=== PATIENT | male | born 1935 | race Caucasian/White ===

== ENCOUNTER → 2016-11-21 | Outpatient (CLI) | payer OTHER, MEDICARE | LOC: BHFA 10:30 | PROVIDERS: ATTEND Internal Medicine Interventional Cardiology | DX: I48.92 Unspecified atrial flutter (principal); E78.5 Hyperlipidemia, unspecified ==

== ENCOUNTER 2016-11-22 09:23 | Day surgery (SDC) | payer OTHER, MEDICARE ==
[2016-11-22] MEDS ORDERED: MIDAZOLAM 2 MG/2 ML VIAL IVP ONE (09:25)
[2016-11-22] MEDS ORDERED: NS 500 ML IV ONE (09:25)
[2016-11-22] MEDS ORDERED: PROPOFOL 200 MG/20 ML VIAL IVP ONE (09:25)
[2016-11-22] MEDS ORDERED: fentaNYL 100 MCG/2 ML INJ IVP ONE (09:25)
--- NOTE | 2016-11-22 09:56 | CPEKG ---
Heart Rate: 80 RR Interval: 750 P-R Interval: 217 QRSD Interval: 98 QT Interval: 392 QTC Interval: 453 P [place]: 0 QRS [place]: -27 T Wave [place]: 78 EKG Severity - BORDERLINE ECG - EKG Impression: INCOMPLETE ANALYSIS DUE TO MISSING DATA IN PRECORDIAL LEAD(S) EKG Impression: SINUS RHYTHM EKG Impression: ATRIAL PREMATURE COMPLEX EKG Impression: BORDERLINE LEFT AXIS DEVIATION EKG Impression: BORDERLINE T ABNORMALITIES, ANT-LAT LEADS Electronically Signed By: Catracho Sanchez 23-Nov-2016 14:17:35
[2016-11-22 10:50] LABS: ANION GAP 10 mEq/L (8-16); CALCIUM 8.8 mg/dL (8.5-10.4); CARBON DIOXIDE 25 mEq/l (22-31); CHLORIDE 104 mEq/L (97-110); CREATININE 0.8 mg/dL (0.7-1.3); GLOMERULAR FILTRATION RATE > 60; GLUCOSE 100 mg/dL (70-100); MAGNESIUM 1.7 mg/dL (1.6-2.3); POTASSIUM 4.7 mEq/L (3.5-5.2); SODIUM 139 mEq/L (134-144)
[2016-11-22 11:01] LABS: TROPONIN I 0.015 ng/mL (0-0.034)
--- NOTE | 2016-11-22 12:10 | ECHO ---
[id number] + + [address] : : [place] [address] : : [phone] + + Adult Echocardiographic Report + --------+ :Name: NASREEN PATEL HStudy Date: 11/22/2016 10:18 AM : : Hospital Admission Number: [id number] Locat ion: CVC: :: 1935 Gender: Male Height: 72 in : :Age: 81 yrs Race: WH Weight: 190 l b : :Reason For Study: eval heart : : BSA: 2.1 mete rs2 : :History: S/P mitral valve repair : + --------+ MMode/2D Measurements & Calculations IVSd: 0.95 cm RVDd: 3.8 cm FS: 26.4 % Ao root diam: LVPWd: 0.97 cm LVIDd: 3.8 cm EDV(Teich): 60.8 ml3.5 cm LVIDs: 2.8 cm ESV(Teich): 28.9 mlLA dimension: EF(Teich): 52.4 % 4.2 cm LVOT diam: 2.1 cmLVLd ap4: 7.8 cm SV(MOD-sp4): LVOT area: EDV(MOD-sp4): 56.0 ml 3.5 cm2 103.0 ml LVLs ap4: 7.4 cm ESV(MOD-sp4): 47.0 ml EF(MOD-sp4): 54.4 % Normal Measurement Values: + + :LVIDd (3.5-5.7cm) IVSd (0.6-1.1cm) LVPWd (0.6-1.1cm) Aortic Root (2.0-3.7cm)Left Atrium (1.5-4.0cm): :LV Vol(d) (76-115ml) LV Vol(s) (29-48ml) Ejec Fraction (50-65%)PV Marko (0.6- 1.2m/s) TV Marko (0.4-1.0m/s) : :MV E Marko (0.8-1.0m/s)MV A Marko (0.3-1.0m/s)LVOT Marko (0.7-1.2m/s) Asc Ao Marko ( 0.9-1.8m/s) : + + Doppler Measurements & Calculations MV V2 mean: MV P1/2t max marko: Ao mean PG: AI max marko: 97.6 cm/sec 152.2 cm/sec 4.5 mmHg 451.0 cm/sec MV mean PG: MV P1/2t: 98.9 msec Ao V2 mean: AI max P.6 mmHg MVA(P1/2t): 2.2 cm2 102.6 cm/sec 81.3 mmHg MV V2 VTI: MV dec slope: Ao V2 VTI: AI dec slope: 35.7 cm 26.3 cm 206.1 cm/sec2 MVA(VTI): 451.0 cm/sec2 DARRIUS(I,D): 1.6 cm2 AI P1/2t: 1.2 cm2 640.8 msec LV V1 max: SV(LVOT): 43.1 ml PA V2 max: TR max marko: 74.7 cm/sec 165.6 cm/sec 271.5 cm/sec LV V1 max PG: PA max PG: TR max P.2 mmHg 11.0 mmHg 29.5 mmHg LV V1 mean PG: RAP systole: 1.1 mmHg 10.0 mmHg LV V1 mean: RVSP(TR): 39.5 mmHg 46.5 cm/sec LV V1 VTI: 12.3 cm Left Ventricle The left ventricle is normal in size. There is normal left ventricular wall thickness. Ejection Fraction = 50-55%. Left ventricular systolic function is low normal. No regional wall motion abnormalities noted. Right Ventricle The right ventricle is normal in size and function. Atria The left atrium is moderately dilated. The Left Atrial Volume is 46 ml/m2. The right atrium is mildly dilated. A dilated inferior vena cava suggests increased right atrial pressure. Mitral Valve Mean gradient across the repair Mitral valve is 3.6mmHg. There is mild to moderate mitral regurgitation. Posterior leaflet appears fixed with is consistent with S/P mitral valve repair. Leaflets are thickened with bright focal thickening on the tips of both leaflets. Tricuspid Valve The tricuspid valve is normal in structure and function. There is no tricuspid stenosis. There is moderate to severe tricuspid regurgitation. Right ventricular systolic pressure is 40mmHg. There is Doppler evidence for mild pulmonary hypertension. Aortic Valve The aortic valve is trileaflet. Mildly calcifiend tips of the aortic valve leaflets. There is no aortic stenosis. Mild aortic regurgitation. Pulmonic Valve The pulmonic valve is not well visualized. Great Vessels The aortic root is normal size. Pericardium/Pleural There is no pericardial effusion. Conclusion A two-dimensional transthoracic echocardiogram with M-mode and Doppler was performed. Ejection Fraction = 50-55%. Left ventricular systolic function is low normal. The left atrium is moderately dilated. The Left Atrial Volume is 46 ml/m2. The right atrium is mildly dilated. A dilated inferior vena cava suggests increased right atrial pressure. Posterior leaflet appears fixed with is consistent with S/P mitral valve repair. Leaflets are thickened with bright focal thickening on the tips of both leaflets. There is mild to moderate mitral regurgitation. Mean gradient across the repair Mitral valve is 3.6mmHg. Right ventricular systolic pressure is 40mmHg. There is Doppler evidence for mild pulmonary hypertension. There is moderate to severe tricuspid regurgitation. Mildly calcifiend tips of the aortic valve leaflets. Mild aortic regurgitation. Final Reading Physician: Ping Ma signed on 11/22/2016 12:09 PM Ordering Physician: REAL HECTOR Performed By: Shyanne Quiñones
== END 2016-11-22 12:00 | disposition home or self-care (01) ==
LOC: FCATH 09:23
PROVIDERS: ATTEND Internal Medicine Interventional Cardiology
DX: I48.92 Unspecified atrial flutter (principal); I10 Essential (primary) hypertension; E78.5 Hyperlipidemia, unspecified; Z53.09 Procedure and treatment not carried out because of other contraindication

== ENCOUNTER → 2017-04-17 | Outpatient (CLI) | payer OTHER, MEDICARE | LOC: BHFA 14:15 | PROVIDERS: ATTEND Internal Medicine Interventional Cardiology | DX: I47.1 Supraventricular tachycardia (principal); I48.91 Unspecified atrial fibrillation; Z98.890 Other specified postprocedural states ==

== ENCOUNTER → 2018-02-06 | Outpatient (CLI) | payer OTHER, MEDICARE | LOC: FIMAGING 12:20 | PROVIDERS: ATTEND Internal Medicine | DX: J98.4 Other disorders of lung (principal); M51.34 Other intervertebral disc degeneration, thoracic region; Z98.890 Other specified postprocedural states ==

== ENCOUNTER → 2018-03-05 | Outpatient (CLI) | payer OTHER, MEDICARE | LOC: BHFA 13:00 | PROVIDERS: ATTEND Internal Medicine Cardiovascular Disease | DX: R07.9 Chest pain, unspecified (principal) | CPT/HCPCS: 78452; 93017; A9500; J2785 ==

== ENCOUNTER → 2018-03-07 | Outpatient (CLI) | payer OTHER, MEDICARE | LOC: FIMAGING 15:21 | PROVIDERS: ATTEND Internal Medicine | DX: R05 Cough (principal); R06.2 Wheezing; I48.91 Unspecified atrial fibrillation; G25.0 Essential tremor ==

== ENCOUNTER → 2018-04-03 | Outpatient (CLI) | payer OTHER, MEDICARE | LOC: BHFA 09:00 | PROVIDERS: ATTEND Internal Medicine Interventional Cardiology | DX: I48.91 Unspecified atrial fibrillation (principal) ==

== ENCOUNTER → 2018-07-02 | Outpatient (CLI) | payer OTHER, MEDICARE | LOC: BHFA 10:30 | PROVIDERS: ATTEND Internal Medicine Interventional Cardiology | DX: I47.1 Supraventricular tachycardia (principal); I48.91 Unspecified atrial fibrillation; I38 Endocarditis, valve unspecified ==

== ENCOUNTER → 2018-07-16 | Outpatient (CLI) | payer OTHER, MEDICARE | LOC: BHFA 11:00 | PROVIDERS: ATTEND Internal Medicine | DX: I48.91 Unspecified atrial fibrillation (principal) ==

== ENCOUNTER → 2019-02-11 | Outpatient (CLI) | payer OTHER, MEDICARE | LOC: FIMAGING 10:42 | PROVIDERS: ATTEND Internal Medicine | DX: R06.00 Dyspnea, unspecified (principal); R09.81 Nasal congestion; R53.83 Other fatigue; Z79.899 Other long term (current) drug therapy; Z98.890 Other specified postprocedural states ==

== ENCOUNTER → 2019-04-06 | Outpatient (CLI) | payer OTHER, MEDICARE | LOC: FIMAGING 10:56 ==